=== PATIENT | female | born 1995 | race African-American/Black ===

== ENCOUNTER 2022-03-08 00:42 | Emergency (ER) | payer OTHER ==
[2022-03-08] MEDS ORDERED: Ketorolac Tromethamine 30 MG/ML VIAL ONE (01:56)
== END 2022-03-08 02:39 | disposition home or self-care (01) ==
LOC: ERS 00:42
DX: M25.561 Pain in right knee (principal); R07.89 Other chest pain
CPT/HCPCS: 36415; 71045; 72170; 84484; 93005; 96374; J1885

== ENCOUNTER 2022-03-10 21:00 | Emergency (ER) | payer BC | END 2022-03-10 22:47 | disposition home or self-care (01) | LOC: ERS 21:00 | DX: S06.0X0A Concussion without loss of consciousness, initial encounter (principal); V89.0XXA Person injured in unspecified motor-vehicle accident, nontraffic, initial encounter | CPT/HCPCS: 99283 ==